=== PATIENT | female | born 1950 | race Caucasian/White ===

== ENCOUNTER 2017-02-17 11:15 | Emergency (ER) | payer MEDICARE, OTHER ==
[~2017-02-17] VITALS: Ht 160 cm; Wt 71.0 kg
[~2017-02-17 11:15] MED LIST: ASPI325T PO; CARV12.52 PO; EFFE150C PO; GABA300C5 PO; LISI40TA PO; LORA1TAB12 PO; PRED20 PO; RISP3TAB2 PO; VENTAER INH
[2017-02-17 11:16] VITALS: BP 113/74; PULSE 71; RESP 18; TEMP 98.7; O2SAT 96
--- NOTE | 2017-02-17 11:40 | PD ---
HPI Chief Complaint: Skin Problem Time Seen by Provider: 11:30 Travel History International Travel<30 days: No Contact w/Intl Traveler<30days: No Traveled to known affect area: No History of Present Illness HPI This is a 66-year-old female who presents for evaluation of a rash. Symptoms started one month ago. The rash is pruritic and involves the extremities and torso. She reports that she was seen by her primary care physician 2 weeks ago and placed on an unknown oral antibiotic as well as mupirocin cream and an antifungal cream. she then went back to her primary care physician yesterday and medications were changed to Bactrim. She reports that she had some lab work which "didn't show anything." She says that the rash is persisted which prompted evaluation today. She reports that she has an appointment with a glassware defect repairer February 23 but she did not want to wait until then. She does note that she currently lives in a homeless coalition and further versus has a similar rash however she is a poor historian. Denies any fevers, chills, upper respiratory symptoms, recent travel, GI symptoms. She has no other complaints at this time. PFSH Past Medical History Hx Anticoagulant Therapy: Yes (ASA) Bipolar Disorder: Yes Anxiety: Yes Depression: Yes Cancer: Yes (Non hodgkin's lymphoma (2004) ) Cardiovascular Problems: Yes (HTN) High Cholesterol: Yes Chemotherapy: Yes (2006) Congestive Heart Failure: Yes COPD: Yes Diminished Hearing: No Gastrointestinal Disorders: Yes (PANCREATITIS) GERD: Yes Headaches: Yes Hepatitis: Yes (C) Hiatal Hernia: Yes Hypertension: Yes Implanted Vascular Access Dvce: Yes (RIGHT CHEST) Musculoskeletal: Yes Neurologic: Yes Psychiatric: Yes Respiratory: Yes (COPD) Pancreatitis: Yes Pneumonia: Yes Seizures: Yes Menopausal: Yes : 3 Para: 1 : 2 Tubal Ligation: Yes Past Surgical History Abdominal Surgery: Yes Appendectomy: Yes Body Medical Devices: CARDIAC STENT X 1 Cardiac Surgery: Yes (cardiac cath) Coronary Stent: Yes (X 1) Oral Surgery: Yes (TEETH PULLED) Other Surgery: Yes (MULTIPLE SKIN GRAFTS SX FROM [facility]) Social History Alcohol Use: No Tobacco Use: No (4-5 CIGS/DAY) Substance Use: No Allergies-Medications (Allergen,Severity, Reaction): Coded Allergies: Penicillin (Verified Allergy, Severe, Swelling, 02/17/17) Per pt. Vancomycin (Verified Allergy, Intermediate, REDNESS,FEVER, 02/17/17) Per pt. Reported Meds & Prescriptions Reported Meds & Active Scripts Active Prednisone 20 Mg Tab 40 Mg PO ONCE 5 Days Ventolin Hfa 18 GM Inh (Albuterol Sulfate) 90 Mcg/Act Aer 2 Puff INH Q4-6H PRN Reported Effexor XR 24 HR (Venlafaxine HCl) 150 Mg Cap 150 Mg PO DAILY Risperidone 3 Mg Tab 3 Mg PO HS Lorazepam 1 Mg Tab 1 Mg PO TID PRN Lisinopril 40 Mg Tab 40 Mg PO DAILY Gabapentin 300 Mg Cap 300 Mg PO TID Carvedilol 12.5 Mg Tab 12.5 Mg PO TID Aspirin 325 Mg Tab 325 Mg PO DAILY Review of Systems Except as stated in HPI: all other systems reviewed are Neg Physical Exam Narrative GENERAL: Well-developed well-nourished female in no acute distress SKIN: Warm and dry. Examination of the skin reveals multiple excoriated plaque lesions on the torso and extremities. There is no purpura, no vesicles, no pustules, no petechiae, no hives, no induration or erythema of the skin. There is some scabbing likely secondary to scratching. HEAD: Atraumatic. Normocephalic. EYES: Pupils equal and round. No scleral icterus. No injection or drainage. ENT: No nasal bleeding or discharge. Mucous membranes pink and moist. NECK: Trachea midline. No JVD. CARDIOVASCULAR: Regular rate and rhythm. No murmur appreciated. RESPIRATORY: No accessory muscle use. Clear to auscultation. Breath sounds equal bilaterally. GASTROINTESTINAL: Abdomen soft, non-tender, nondistended. Hepatic and splenic margins not palpable. MUSCULOSKELETAL: No obvious deformities. No edema. NEUROLOGICAL: Awake and alert. No obvious cranial nerve deficits. Motor grossly within normal limits. Normal speech. PSYCHIATRIC: Appropriate mood and affect; insight and judgment normal. Data Data Last Documented VS Vital Signs Date Time Temp Pulse Resp B/P Pulse Ox O2 Delivery O2 Flow Rate FiO2 02/17/17 11:16 98.7 71 18 113/74 96 Room Air MDM Medical Decision Making Medical Screen Exam Complete: Yes Emergency Medical Condition: Yes Medical Record Reviewed: Yes Differential Diagnosis Psoriasis, contact dermatitis, viral exanthem, scabies, bedbugs, cellulitis, erysipelas, impetigo Narrative Course 66-year-old female who has had a widespread pruritic rash for 1 month. Examination reveals excoriated plaque lesions, no evidence of secondary cellulitic changes. I recommended that the patient discontinue the Bactrim antibiotic and she will be placed on prednisone, Vistaril as well as triamcinolone cream. She has no plan with a glassware defect repairer in one week if she is encouraged to follow-up with. She is stable for discharge. Diagnosis Primary Impression: Pruritic rash Additional Instructions: Quit taking the sulfamethoxazole antibiotic. Take the medications as prescribed. As discussed, scratching a skin contaminant her skin and cause a secondary bacterial infection. Avoid this as best as possible. Follow-up with glassware defect repairer as scheduled. Return for any new or worsening symptoms. Med/Other Pt SpecificInfo: Prescription(s) given Scripts Triamcinolone Topical 0.025 % Oint1 Applic TOPICAL BID 7 Days Ref 0 Prov:Darya Cahvez MD 02/17/17 Hydroxyzine Pamoate (Vistaril)25 Mg Cap25 Mg PO Q6H #20 CAP Ref 0 Prov:Darya Chavez MD 02/17/17 Prednisone 20 Mg Tab20 Mg PO BID 5 Days Ref 0 Prov:Darya Chavez MD 02/17/17 Disposition: 01 DISCHARGE HOME Condition: Stable Chau Guallpa Feb 17, 2017 11:40
[2017-02-17] MEDS ORDERED: PRED20 PO (12:09)
[2017-02-17] MEDS ORDERED: TRIA0.022 TOPICAL (12:09)
[2017-02-17] MEDS ORDERED: VIST25CA PO (12:09)
[2017-02-17] MEDS ORDERED: predniSONE 20 MG TAB PO ONE (12:15)
[2017-02-17] MEDS ORDERED: SULF400T PO (12:42)
== END 2017-02-17 13:00 | disposition home or self-care (01) ==
LOC: NEPA 11:15
DX: L29.9 Pruritus, unspecified (principal); I10 Essential (primary) hypertension; I50.9 Heart failure, unspecified; J44.9 Chronic obstructive pulmonary disease, unspecified; E78.00 Pure hypercholesterolemia, unspecified; F41.9 Anxiety disorder, unspecified; Z85.72 Personal history of non-Hodgkin lymphomas; Z79.82 Long term (current) use of aspirin
CPT/HCPCS: 99282; J7512

== ENCOUNTER 2017-03-08 16:12 | Emergency (ER) | payer MEDICARE, OTHER ==
[~2017-03-08] VITALS: Ht 160 cm; Wt 71.5 kg
[~2017-03-08 16:12] MED LIST changes: -ASPI325T PO; +SULF400T PO; +TRIA0.022 TOPICAL; +VIST25CA PO
--- NOTE | 2017-03-08 18:26 | PD ---
HPI Chief Complaint: Edema Time Seen by Provider: 18:26 Travel History International Travel<30 days: No Contact w/Intl Traveler<30days: No Traveled to known affect area: No History of Present Illness HPI 66-year-old female presents the emergency department with ongoing pruritic rash to the lower extremities, upper extremities, and torso. Patient is been seen for this approximate one month ago, and treated with prednisone and topical hydrocortisone ointment. Patient has been seen by a director of development and marketing and had a punch biopsy done on the left lower extremity. Patient states she's been placed on an ointment she is unaware of the name of without any improvement. She saw the director of development and marketing on February 23. Patient is a chain smoker with chronic shortness of breath and sinusitis symptoms. Patient denies fever, chills, or other symptoms. Patient is allergic to penicillin and vancomycin. PFSH Past Medical History Hx Anticoagulant Therapy: Yes Bipolar Disorder: Yes Anxiety: Yes Depression: Yes Cancer: Yes (Non hodgkin's lymphoma (2004) ) Cardiovascular Problems: Yes (HTN) High Cholesterol: Yes Chemotherapy: Yes (2006) Congestive Heart Failure: Yes COPD: Yes Diminished Hearing: No Gastrointestinal Disorders: Yes (PANCREATITIS) GERD: Yes Headaches: Yes Hepatitis: Yes (C) Hiatal Hernia: Yes Hypertension: Yes Implanted Vascular Access Dvce: Yes (RIGHT CHEST) Musculoskeletal: Yes Neurologic: Yes Psychiatric: Yes Respiratory: Yes (COPD) Pancreatitis: Yes Pneumonia: Yes Seizures: Yes Tetanus Vaccination: Unknown Influenza Vaccination: Yes Menopausal: Yes : 3 Para: 1 : 2 Tubal Ligation: Yes Past Surgical History Abdominal Surgery: Yes Appendectomy: Yes Body Medical Devices: CARDIAC STENT X 1 Cardiac Surgery: Yes (cardiac cath) Coronary Stent: Yes (X 1) Oral Surgery: Yes (TEETH PULLED) Other Surgery: Yes (MULTIPLE SKIN GRAFTS SX FROM [facility]) Social History Alcohol Use: Yes Tobacco Use: Yes Substance Use: No Allergies-Medications (Allergen,Severity, Reaction): Coded Allergies: Penicillin (Verified Allergy, Severe, Swelling, 03/08/17) Per pt. Vancomycin (Verified Allergy, Intermediate, REDNESS,FEVER, 03/08/17) Per pt. Reported Meds & Prescriptions Reported Meds & Active Scripts Active Diflucan (Fluconazole) 150 Mg Tab 150 Mg PO WEEKLY PRN Prednisone 20 Mg Tab 20 Mg PO BID Keflex (Cephalexin) 500 Mg Cap 500 Mg PO Q8H Triamcinolone Topical 0.025 % Oint 1 Applic TOPICAL BID 7 Days Vistaril (Hydroxyzine Pamoate) 25 Mg Cap 25 Mg PO Q6H Prednisone 20 Mg Tab 20 Mg PO BID 5 Days Ventolin Hfa 18 GM Inh (Albuterol Sulfate) 90 Mcg/Act Aer 2 Puff INH Q4-6H PRN Reported Sulfamethoxazole-Trimethoprim 400-80 Mg Tab 1 Tab PO BID Effexor XR 24 HR (Venlafaxine HCl) 150 Mg Cap 150 Mg PO DAILY Risperidone 3 Mg Tab 3 Mg PO HS Lorazepam 1 Mg Tab 1 Mg PO TID PRN Lisinopril 40 Mg Tab 40 Mg PO DAILY Gabapentin 300 Mg Cap 300 Mg PO TID Carvedilol 12.5 Mg Tab 12.5 Mg PO TID Review of Systems Except as stated in HPI: all other systems reviewed are Neg General / Constitutional: No: Fever Eyes: No: Visual changes HENT: No: Headaches Cardiovascular: No: Chest Pain or Discomfort Respiratory: No: Shortness of Breath Gastrointestinal: No: Abdominal Pain Genitourinary: No: Dysuria Musculoskeletal: No: Pain Skin: Positive Rash, Positive Itching, Positive Dryness Neurologic: No: Weakness Psychiatric: No: Depression Endocrine: No: Polydipsia Hematologic/Lymphatic: No: Easy Bruising Physical Exam Narrative GENERAL: Patient is ambulatory to the room without difficulty. She has SKIN: Warm and dry. HEAD: Atraumatic. Normocephalic. EYES: Pupils equal and round. No scleral icterus. No injection or drainage. ENT: No nasal bleeding or discharge. Mucous membranes pink and moist. NECK: Trachea midline. No JVD. CARDIOVASCULAR: Regular rate and rhythm. RESPIRATORY: No accessory muscle use. Clear to auscultation. Breath sounds equal bilaterally. GASTROINTESTINAL: Abdomen soft, non-tender, nondistended. Hepatic and splenic margins not palpable. MUSCULOSKELETAL: Extremities without clubbing, cyanosis, or edema. No obvious deformities. NEUROLOGICAL: Awake and alert. No obvious cranial nerve deficits. Motor grossly within normal limits. Five out of 5 muscle strength in the arms and legs. Normal speech. PSYCHIATRIC: Appropriate mood and affect; insight and judgment normal. Data Data Last Documented VS Vital Signs Date Time Temp Pulse Resp B/P Pulse Ox O2 Delivery O2 Flow Rate FiO2 03/08/17 19:57 95 Nasal Cannula 2 03/08/17 19:10 102.1 Orders Complete Blood Count With Diff (03/08/17 19:11) Comprehensive Metabolic Panel (03/08/17 19:11) Prothrombin Time / Inr (Pt) (03/08/17 19:11) Act Partial Throm Time (Ptt) (03/08/17 19:11) Lactic Acid Sepsis Protocol (03/08/17 19:11) Magnesium (Mg) (03/08/17 19:11) Lipase (03/08/17 19:11) Urinalysis - C+S If Indicated (03/08/17 19:11) Influenzae A/B Antigen (03/08/17 19:11) Blood Culture (03/08/17 19:11) Chest, Single Ap (03/08/17 19:11) Ecg Monitoring (03/08/17 19:11) Iv Access Insert/Monitor (03/08/17 19:11) Cath For Specimen (03/08/17 19:11) Oximetry (03/08/17 19:11) Oxygen Administration (03/08/17 19:11) Acetaminophen (Tylenol) (03/08/17 19:15) Sodium Chlor 0.9% 1000 Ml Inj (Ns 1000 M (03/08/17 19:11) Sodium Chlor 0.9% 1000 Ml Inj (Ns 1000 M (03/08/17 19:11) Sodium Chlor 0.9% 1000 Ml Inj (Ns 1000 M (03/08/17 19:11) Urinary Catheter Insert/Apply (03/08/17 20:09) Urine Culture (03/08/17 20:20) Ceftriaxone Inj (Rocephin Inj) (03/08/17 20:45) Methylprednisolone So Succ Inj (Solumedr (03/08/17 20:45) Nicotine 21 Mg Patch.24 Hr (Habitrol 21 (03/08/17 20:45) Labs Laboratory Tests Test 03/08/17 03/08/17 19:40 20:20 White Blood Count 10.3 TH/MM3 Red Blood Count 5.05 MIL/MM3 Hemoglobin 13.4 GM/DL Hematocrit 40.5 % Mean Corpuscular Volume 80.1 FL Mean Corpuscular Hemoglobin 26.5 PG Mean Corpuscular Hemoglobin 33.0 % Concent Red Cell Distribution Width 15.9 % Platelet Count 209 TH/MM3 Mean Platelet Volume 8.3 FL Neutrophils (%) (Auto) 72.0 % Lymphocytes (%) (Auto) 18.8 % Monocytes (%) (Auto) 8.8 % Eosinophils (%) (Auto) 0.2 % Basophils (%) (Auto) 0.2 % Neutrophils # (Auto) 7.4 TH/MM3 Lymphocytes # (Auto) 1.9 TH/MM3 Monocytes # (Auto) 0.9 TH/MM3 Eosinophils # (Auto) 0.0 TH/MM3 Basophils # (Auto) 0.0 TH/MM3 CBC Comment DIFF FINAL Differential Comment Prothrombin Time 11.9 SEC Prothromb Time International 1.1 RATIO Ratio Activated Partial 33.6 SEC Thromboplast Time Sodium Level 131 MEQ/L Potassium Level 3.6 MEQ/L Chloride Level 91 MEQ/L Carbon Dioxide Level 32.8 MEQ/L Anion Gap 7 MEQ/L Blood Urea Nitrogen 9 MG/DL Creatinine 0.91 MG/DL Estimat Glomerular Filtration 62 ML/MIN Rate Random Glucose 129 MG/DL Lactic Acid Level 1.1 mmol/L Calcium Level 9.5 MG/DL Magnesium Level 2.1 MG/DL Total Bilirubin 0.6 MG/DL Aspartate Amino Transf 14 U/L (AST/SGOT) Alanine Aminotransferase 19 U/L (ALT/SGPT) Alkaline Phosphatase 85 U/L Total Protein 9.1 GM/DL Albumin 3.7 GM/DL Lipase 261 U/L Urine Color LIGHT-YELLOW Urine Turbidity CLEAR Urine pH 7.5 Urine Specific [place] 1.007 Urine Protein 30 mg/dL Urine Glucose (UA) NEG mg/dL Urine Ketones NEG mg/dL Urine Occult Blood SMALL Urine Nitrite NEG Urine Bilirubin NEG Urine Urobilinogen LESS THAN 2.0 MG/DL Urine Leukocyte Esterase SMALL Urine RBC 4 /hpf Urine WBC 3 /hpf Urine Bacteria OCC /hpf Microscopic Urinalysis Comment CATH-CULTURE IND MDM Medical Decision Making Medical Screen Exam Complete: Yes Emergency Medical Condition: Yes Medical Record Reviewed: Yes Differential Diagnosis Fever. Chronic rash. Urosepsis. Urinary tract infection. COPD with exacerbation. Ammonia. Narrative Course Patient is medically stable at time of exam. Labs ordered including CBC, CMP, lactic acid, blood cultures 2, urinalysis, coagulation studies. Chest x-ray is ordered as well as EKG. EKG shows no significant acute findings. Chest x-ray shows no acute findings per radiologist. Cárdenas catheter is placed as the patient is up to go to the bathroom every 5 minutes while here. Patient is given acetaminophen 650 mg by mouth. Patient is given thousand milligrams saline bolus 1. CBC shows no significant leukocytosis. CMP shows sodium 131, potassium 3.6. Chloride of 91. Carbon dioxide 32.8. BUN /creatinine are normal. Lactic acid is 1.1. Coagulation studies are unremarkable. Urinalysis shows small leukocyte esterase, occasional bacteria on a catheter sample which was cultured. Patient is given thousand milligrams Rocephin IV, as well as 125 mg Solu-Medrol IV. Patient is given a 21 g nicotine patch topically. Patient is discussed with Dr. Ospina who does not feel the patient warrants hospitalization at this time. Patient will be given Keflex 500 mg 3 times a day 7 days. Patient also given prednisone 20 mg twice a day 5 days. Patient is given Diflucan 1 tablet weekly 4 weeks for what I feel is a chronic dermatophytosis causing her rash. Patient is to follow-up with her primary care physician and/or director of development and marketing as previously planned. Patient can return to emergency Department with worsening symptoms as needed. Diagnosis Primary Impression: Pruritic rash Additional Impressions: UTI (urinary tract infection) Qualified Code: N30.00 - Acute cystitis without hematuria Dermatophytosis Referrals: Primary Care Physician Patient Instructions: Dermatitis (ED), Dysuria (ED), General Instructions Additional Instructions: Patient will be given Keflex 500 mg 3 times a day 7 days. Patient also given prednisone 20 mg twice a day 5 days. Patient is given Diflucan 1 tablet weekly 4 weeks for what I feel is a chronic dermatophytosis causing her rash. Patient is to follow-up with her primary care physician and/or director of development and marketing as previously planned. Patient can return to emergency Department with worsening symptoms as needed. Med/Other Pt SpecificInfo: Prescription(s) given Scripts Fluconazole (Diflucan)150 Mg [id number] Mg PO WEEKLY PRN (RASH) #4 TAB Ref 0 Prov:Aamir Barboza MD 03/08/17 Prednisone 20 Mg Tab20 Mg PO BID #10 TAB Prov:Aamir Barboza MD 03/08/17 Cephalexin (Keflex)500 Mg [id number] Mg PO Q8H #21 CAP Prov:Aamir Barboza MD 4/17/17 Disposition: 01 DISCHARGE HOME Condition: Stable Joseph Cleary Mar 08, 2017 18:26
[2017-03-08 19:10] VITALS: TEMP 102.1
[2017-03-08] MEDS ORDERED: SODIUM CHLOR 0.9% 1000 ML INJ 1,000 ML IV ONE ×2 (19:11)
[2017-03-08] MEDS ORDERED: SODIUM CHLOR 0.9% 1000 ML INJ 400 ML IV ONE (19:11)
[2017-03-08] MEDS ORDERED: ACETAMINOPHEN 325 MG TAB PO ONE (19:15)
--- NOTE | 2017-03-08 19:32 | RADRPT ---
EXAM DATE/TIME: 03/08/2017 19:25 [facility] COMPARISON: CHEST SINGLE AP, October 10, 2016, 10:57. INDICATIONS : Fever MEDICAL HISTORY : Hypertension. Lymphoma. SURGICAL HISTORY : Coronary artery stent. ENCOUNTER: Initial ACUITY: 1 day PAIN SCORE: 0/10 LOCATION: Bilateral chest FINDINGS: No infiltrate seen. No pleural effusion or pneumothorax. Heart size stable, within normal limits. Thoracic aorta is mildly tortuous. Right subclavian [id number] catheter with tip in the superior vena cava again noted. CONCLUSION: No acute cardiopulmonary disease demonstrated. Richard Azar MD on March 08, 2017 at 19:30 Board Certified Radiologist. This report was verified electronically.
[2017-03-08 20:17] LABS: AUTOMATED NEUTROPHIL # 7.4 TH/MM3 (1.8-7.7); BASOPHIL % 0.2 % (0.0-2.0); EOSINOPHIL % 0.2 % (0.0-4.0); HEMATOCRIT 40.5 % (35.0-46.0); HEMO FLAGS DIFF FINAL; LYMPH % 18.8 % (9.0-44.0); LYMPHOCYTE # 1.9 TH/MM3 (1.0-4.8); MEAN CELL VOLUME 80.1 FL (80.0-100.0); MEAN CORPUSCULAR HEMOGLOBIN 26.5 PG (27.0-34.0); MONO % 8.8 % (0.0-8.0); PLATELET COUNT 209 TH/MM3 (150-450); RED BLOOD COUNT 5.05 MIL/MM3 (4.00-5.30); RED CELL DISTRIBUTION WIDTH 15.9 % (11.6-17.2); WHITE BLOOD COUNT 10.3 TH/MM3 (4.0-11.0)
[2017-03-08 20:23] LABS: APTT (PATIENT) 33.6 SEC (24.3-30.1); INTERNATIONAL NORMALIZED RATIO 1.1 RATIO; PROTHROMBIN TIME - PATIENT 11.9 SEC (9.8-11.6)
[2017-03-08 20:31] LABS: ANION GAP 7 MEQ/L (5-15); AST (GOT) 14 U/L (15-37); BICARBONATE 32.8 MEQ/L (21.0-32.0); BLOOD UREA NITROGEN 9 MG/DL (7-18); CHLORIDE 91 MEQ/L (98-107); GLOMERULAR FILTRATION RATE 62 ML/MIN (>89); MAGNESIUM 2.1 MG/DL (1.5-2.5); POTASSIUM 3.6 MEQ/L (3.5-5.1); SODIUM (NA) 131 MEQ/L (136-145)
[2017-03-08 20:34] LABS: BACTERIA, URINE OCC /hpf; BLOOD, URINE SMALL (NEG); GLUCOSE,URINE NEG (NEG); KETONE, URINE NEG (NEG); NITRITE,URINE NEG (NEG); PH, URINE 7.5 (5.0-8.5); URINE COLOR LIGHT-YELLOW (YELLW/STRAW)
[2017-03-08 20:34] LABS: ALKALINE PHOSPHATASE 85 U/L (45-117); ALT (GPT) 19 U/L (10-53); TOTAL BILIRUBIN ADULT 0.6 MG/DL (0.2-1.0)
[2017-03-08 20:35] LABS: COMMENT (UR) CATH-CULTURE IND; CULTURE IF INDICATED CATH CULTURE IND
[2017-03-08] MEDS ORDERED: NICOTINE 21 MG/24 HR PATCH T-DERMAL ONE (20:45)
[2017-03-08] MEDS ORDERED: cefTRIAXone INJ 1,000 MG in SODIUM CHLORIDE 0.9% INJ 100 ML IV ONE (20:45)
[2017-03-08] MEDS ORDERED: methylPREDNISolone SOD SUCC 125 MG/2 ML VIAL IVP ONE (20:45)
[2017-03-08] MEDS ORDERED: PRED20 PO (20:53)
[2017-03-08] MEDS ORDERED: CEPH-460 PO (20:53)
[2017-03-08] MEDS ORDERED: DIFL150T PO (20:53)
== END 2017-03-08 23:41 | disposition home or self-care (01) ==
LOC: NEPC 16:12
DX: R21 Rash and other nonspecific skin eruption (principal); N39.0 Urinary tract infection, site not specified; B35.9 Dermatophytosis, unspecified; I10 Essential (primary) hypertension; B96.20 Unspecified Escherichia coli [E. coli] as the cause of diseases classified elsewhere; Z79.01 Long term (current) use of anticoagulants; Z72.0 Tobacco use; Z79.899 Other long term (current) drug therapy
CPT/HCPCS: 51702; 71010; 80053; 81001; 83605; 83690; 83735; 85025; 85610; 85730; 87040; 87077; 87086; 87186; 87205; 87804; 96374; 99283; J0696; J2930; J7030

== ENCOUNTER 2017-08-08 11:32 | Observation (INO) | payer MEDICARE, OTHER ==
[2017-08-08] VITALS (8 sets, daily range): BP systolic 105–143; BP diastolic 57–79; PULSE 49–118; RESP 16–20; TEMP 97.9–98.7; O2SAT 96–98
[~2017-08-08] VITALS: Ht 160 cm; Wt 65.0 kg
[~2017-08-08 11:32] MED LIST changes: +CEPH-460 PO; +DIFL150T PO
[2017-08-08] MEDS ORDERED: SODIUM CHLORID 0.9% 500 ML INJ 500 ML IV ONE (12:15)
[2017-08-08] MEDS ORDERED: SODIUM CHLORIDE 0.9% FLUSH 10 ML FLUSH IVF PRN (12:15)
[2017-08-08] MEDS ORDERED: ACETAMINOPHEN 325 MG TAB PO ONE (12:15)
[2017-08-08] MEDS: SODIUM CHLOR 0.9% 1000 ML INJ 1,000 ML IV SCH ×2 (12:28→22:15)
[2017-08-08 12:42] LABS: AUTOMATED NEUTROPHIL # 3.8 TH/MM3 (1.8-7.7); BASOPHIL % 0.4 % (0.0-2.0); EOSINOPHIL # 0.2 TH/MM3 (0-0.4); EOSINOPHIL % 2.4 % (0.0-4.0); HEMATOCRIT 40.2 % (35.0-46.0); HEMO FLAGS DIFF FINAL; LYMPH % 38.3 % (9.0-44.0); LYMPHOCYTE # 2.8 TH/MM3 (1.0-4.8); MEAN CELL VOLUME 85.3 FL (80.0-100.0); MEAN CORPUSCULAR HEMOGLOBIN 28.4 PG (27.0-34.0); MEAN CORPUSCULAR HGB CONC 33.3 % (32.0-36.0); MONO % 6.7 % (0.0-8.0); NEUT % 52.2 % (16.0-70.0); PLATELET COUNT 249 TH/MM3 (150-450); RED BLOOD COUNT 4.71 MIL/MM3 (4.00-5.30); RED CELL DISTRIBUTION WIDTH 15.3 % (11.6-17.2); WHITE BLOOD COUNT 7.3 TH/MM3 (4.0-11.0)
--- NOTE | 2017-08-08 12:44 | PD ---
HPI Chief Complaint: Respiratory Symptoms Time Seen by Provider: 11:51 Travel History International Travel<30 days: No Contact w/Intl Traveler<30days: No Traveled to known affect area: No History of Present Illness HPI This is a 66 year old female history of COPD, hypertension, who presents today with complaints of chest pain. Patient states that she has substernal chest pain. Is no radiation. She reports it as a 4 out of 5 on the pain scale. Patient also reports headache. Patient states that she has not been drinking enough fluid over last several days. She denies any photophobia. She denies any stiff neck. She denies any extremity weakness or paresthesias. There are no other complaints time my examination. PFSH Past Medical History Hx Anticoagulant Therapy: Yes Bipolar Disorder: Yes Anxiety: Yes Depression: Yes Cancer: Yes (Non hodgkin's lymphoma (2004) ) Cardiovascular Problems: Yes (HTN) High Cholesterol: Yes Chemotherapy: Yes (2006) Congestive Heart Failure: Yes COPD: Yes Diminished Hearing: No Gastrointestinal Disorders: Yes (PANCREATITIS) GERD: Yes Headaches: Yes Hepatitis: Yes (C) Hiatal Hernia: Yes Hypertension: Yes Implanted Vascular Access Dvce: Yes (RIGHT CHEST) Musculoskeletal: Yes Neurologic: Yes Psychiatric: Yes Respiratory: Yes (COPD) Pancreatitis: Yes Pneumonia: Yes Seizures: Yes Tetanus Vaccination: > 5 Years Influenza Vaccination: Yes ?: Not Menopausal: Yes : 3 Para: 1 Miscarriage: 0 : 2 Tubal Ligation: Yes Past Surgical History Abdominal Surgery: Yes Appendectomy: Yes Body Medical Devices: CARDIAC STENT X 1 Cardiac Surgery: Yes (cardiac cath) Coronary Stent: Yes (X 1) Oral Surgery: Yes (TEETH PULLED) Other Surgery: Yes (MULTIPLE SKIN GRAFTS SX FROM [facility]) Social History Alcohol Use: Yes Tobacco Use: Yes (11/25 ppd) Substance Use: No Allergies-Medications (Allergen,Severity, Reaction): Coded Allergies: penicillin G (Unverified Allergy, Severe, Swelling, 08/08/17) Per pt. vancomycin (Unverified Allergy, Intermediate, REDNESS,FEVER, 08/08/17) Per pt. Reported Meds & Prescriptions Reported Meds & Active Scripts Active Reported Effexor XR 24 HR (Venlafaxine HCl) 150 Mg Cap 150 Mg PO DAILY Lisinopril 40 Mg Tab 40 Mg PO DAILY Gabapentin 300 Mg Cap 300 Mg PO TID Carvedilol 12.5 Mg Tab 12.5 Mg PO TID Review of Systems Except as stated in HPI: all other systems reviewed are Neg General / Constitutional: No: Fever, Chills Eyes: No: Blurred Vision, Photophobia HENT: Positive: Headaches, No: Lightheadedness, Neck Stiffness, Neck Pain Cardiovascular: Positive: Chest Pain or Discomfort (substernal), No: Palpitations, Irregular Rhythm Respiratory: No: Cough, Shortness of Breath Gastrointestinal: No: Nausea, Vomiting Genitourinary: No: Urgency, Frequency, Dysuria Musculoskeletal: No: Weakness, Pain Neurologic: Positive: Headache, No: Weakness, Dizziness, Sensory Disturbance Physical Exam Narrative GENERAL: Well-developed well-nourished female in no acute rest her distress. SKIN: Focused skin assessment warm/dry. HEAD: Atraumatic. Normocephalic. EYES: Extraocular muscles were intact.. No scleral icterus. No injection or drainage. ENT: No nasal bleeding or discharge. Mucous membranes pink and moist. NECK: Trachea midline. Supple. CARDIOVASCULAR: Regular rate and rhythm. No murmur appreciated. RESPIRATORY: No accessory muscle use. Clear to auscultation. Breath sounds equal bilaterally. GASTROINTESTINAL: Abdomen soft, non-tender, nondistended. MUSCULOSKELETAL: No obvious deformities. No clubbing. No cyanosis. No edema. NEUROLOGICAL: Awake and alert. No obvious cranial nerve deficits. Motor grossly within normal limits. Normal speech. Normal finger to nose. Extraocular muscles were intact. PSYCHIATRIC: Appropriate mood and affect; insight and judgment normal. Data Data Last Documented VS Vital Signs Date Time Temp Pulse Resp B/P (MAP) Pulse Ox O2 Delivery O2 Flow Rate FiO2 08/08/17 13:30 20 08/08/17 12:11 96 Room Air 08/08/17 11:35 97.9 63 Orders Orders Electrocardiogram (08/08/17 ) Basic Metabolic Panel (Bmp) (08/08/17 12:05) Ckmb (Isoenzyme) Profile (08/08/17 12:05) Complete Blood Count With Diff (08/08/17 12:05) Magnesium (Mg) (08/08/17 12:05) Prothrombin Time / Inr (Pt) (08/08/17 12:05) Act Partial Throm Time (Ptt) (08/08/17 12:05) Troponin I (08/08/17 12:05) Chest, Single Ap (08/08/17 12:05) Ecg Monitoring (08/08/17 12:05) Bilateral Bp Monitoring (08/08/17 12:05) Iv Access Insert/Monitor (08/08/17 12:05) Oximetry (08/08/17 12:05) Oxygen Administration (08/08/17 12:05) Sodium Chloride 0.9% Flush (Ns Flush) (08/08/17 12:15) Ct Brain W/O Iv Contrast(Rout) (08/08/17 12:05) Sodium Chlorid 0.9% 500 Ml Inj (Ns 500 M (08/08/17 12:15) Sodium Chlor 0.9% 1000 Ml Inj (Ns 1000 M (08/08/17 12:15) Acetaminophen (Tylenol) (08/08/17 12:15) Prochlorperazine Inj (Compazine Inj) (08/08/17 14:45) Diphenhydramine Inj (Benadryl Inj) (08/08/17 14:45) Electrocardiogram (08/08/17 15:01) Ckmb (Isoenzyme) Profile (08/08/17 15:01) Troponin I (08/08/17 15:01) Admit Order (Ed Use Only) (08/08/17 15:02) Labs Laboratory Tests Test 08/08/17 12:20 White Blood Count 7.3 TH/MM3 Red Blood Count 4.71 MIL/MM3 Hemoglobin 13.4 GM/DL Hematocrit 40.2 % Mean Corpuscular Volume 85.3 FL Mean Corpuscular Hemoglobin 28.4 PG Mean Corpuscular Hemoglobin Concent 33.3 % Red Cell Distribution Width 15.3 % Platelet Count 249 TH/MM3 Mean Platelet Volume 8.4 FL Neutrophils (%) (Auto) 52.2 % Lymphocytes (%) (Auto) 38.3 % Monocytes (%) (Auto) 6.7 % Eosinophils (%) (Auto) 2.4 % Basophils (%) (Auto) 0.4 % Neutrophils # (Auto) 3.8 TH/MM3 Lymphocytes # (Auto) 2.8 TH/MM3 Monocytes # (Auto) 0.5 TH/MM3 Eosinophils # (Auto) 0.2 TH/MM3 Basophils # (Auto) 0.0 TH/MM3 CBC Comment DIFF FINAL Differential Comment Prothrombin Time 11.1 SEC Prothromb Time International Ratio 1.0 RATIO Activated Partial Thromboplast Time 27.4 SEC Blood Urea Nitrogen 15 MG/DL Creatinine 0.67 MG/DL Random Glucose 89 MG/DL Calcium Level 8.8 MG/DL Magnesium Level 2.2 MG/DL Sodium Level 141 MEQ/L Potassium Level 4.1 MEQ/L Chloride Level 108 MEQ/L Carbon Dioxide Level 27.2 MEQ/L Anion Gap 6 MEQ/L Estimat Glomerular Filtration Rate 88 ML/MIN Total Creatine Kinase 44 U/L Troponin I LESS THAN 0.02 NG/ML MDM Medical Decision Making Medical Screen Exam Complete: Yes Emergency Medical Condition: Yes Interpretation(s) Last [address] 08/08/17 1205 Signed Impressions: Service Date/Time: Tuesday, August 08, 2017 12:40 - CONCLUSION: No acute disease. Richard Le MD Chest X-Ray 08/08/17 1205 Signed Impressions: Service Date/Time: Tuesday, August 08, 2017 12:29 - CONCLUSION: No acute disease. Richard Le MD Differential Diagnosis ACS versus dehydration versus metabolic arrangement versus intracranial bleed versus noncardiac chest pain. Narrative Course 66 year old female history of COPD, hypertension, presents today with complaints of chest pain and head pain. The patient's been in a house without heat for several days. She has not been drinking enough fluid. The patient does appear to be dehydrated on exam. Patient reports chest pain as substernal. She reports no diaphoresis or nausea. EKG shows no evidence of acute cardiac findings. Cardiac enzymes are within normal limits. CT scan of brain shows no evidence of acute intercranial abnormalities. She's been given 1 L of IVD fluid. She still states that she has a mild headache. She's been given Compazine 10 mg and Benadryl 25 mg I V times one dose. She'll be admitted to the chest pain center for rule out protocol. She is amenable to this. Diagnosis Primary Impression: Chest pain Additional Impressions: Cephalgia Hypertension COPD (chronic obstructive pulmonary disease) Admitting Information Admitting Physician Requests: Observation Michael Hall MD Aug 08, 2017 12:44
[2017-08-08 12:49] LABS: APTT (PATIENT) 27.4 SEC (24.3-30.1); PROTHROMBIN TIME - PATIENT 11.1 SEC (9.8-11.6)
[2017-08-08 13:06] LABS: ANION GAP 6 MEQ/L (5-15); BICARBONATE 27.2 MEQ/L (21.0-32.0); BLOOD UREA NITROGEN 15 MG/DL (7-18); CHLORIDE 108 MEQ/L (98-107); GLOMERULAR FILTRATION RATE 88 ML/MIN (>89); MAGNESIUM 2.2 MG/DL (1.5-2.5); POTASSIUM 4.1 MEQ/L (3.5-5.1); SODIUM (NA) 141 MEQ/L (136-145)
--- NOTE | 2017-08-08 13:08 | RADRPT ---
EXAM DATE/TIME: 08/08/2017 12:29 [facility] COMPARISON: CHEST SINGLE AP, March 08, 2017, 19:25. INDICATIONS : Chest pain. MEDICAL HISTORY : None. SURGICAL HISTORY : None. ENCOUNTER: Initial ACUITY: 1 day PAIN SCORE: 7/10 LOCATION: Bilateral chest FINDINGS: There is a right subclavian central line place with the tip overlying the SVC. The heart size is norm al. The lungs are clear. CONCLUSION: No acute disease. Richard Le MD on August 08, 2017 at 13:06 Board Certified Radiologist. This report was verified electronically.
[2017-08-08 13:11] LABS: CREATINE KINASE 44 U/L (26-192)
--- NOTE | 2017-08-08 13:12 | RADRPT ---
EXAM DATE/TIME: 08/08/2017 12:40 [facility] COMPARISON: CT BRAIN W/O CONTRAST, March 26, 2016, 8:54. INDICATIONS : Low blood pressure, shortness of breath, headache. RADIATION DOSE: 31.71 CTDIvol (mGy) MEDICAL HISTORY : Cardiovascular disease. Seizures. Hypertension.Pancreatitis, liver disease, non hodgkins lymphoma SURGICAL HISTORY : Appendectomy. Chemo ENCOUNTER: Initial ACUITY: 1 day PAIN SCALE: 8/10 LOCATION: Bilateral cranial TECHNIQUE: Multiple contiguous axial images were obtained of the head. Using automated exposure control and adj ustment of the mA and/or kV according to patient size, radiation dose was kept as low as reasonably a chievable to obtain optimal diagnostic quality images. DICOM format image data is available electro nically for review and comparison. FINDINGS: CEREBRUM: The ventricles are normal for age. No evidence of midline shift, mass lesion, hemorrhage or acute in farction. No extra-axial fluid collections are seen. POSTERIOR FOSSA: The cerebellum and brainstem are intact. The 4th ventricle is midline. The cerebellopontine angle i s unremarkable. EXTRACRANIAL: The visualized portion of the orbits is intact. SKULL: The calvaria is intact. No evidence of skull fracture. CONCLUSION: No acute disease. Richard Le MD on August 08, 2017 at 13:10 Board Certified Radiologist. This report was verified electronically.
[2017-08-08] MEDS ORDERED: PROCHLORPERAZINE INJ 10 MG/2 ML VIAL IV PUSH ONE (14:45)
[2017-08-08] MEDS ORDERED: diphenhydrAMINE HCL 50 MG/ML VIAL IM ONE (14:45)
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
[2017-08-08] MEDS ORDERED: SODIUM CHLORIDE 0.9% FLUSH 5 ML FLUSH IVF PRN (15:45)
[2017-08-08] MEDS ORDERED: cloNIDine HCL 0.1 MG TAB PO PRN (15:45)
[2017-08-08] MEDS ORDERED: ONDANSETRON HCL 4 MG/2 ML VIAL IV PRN (15:45)
[2017-08-08] MEDS ORDERED: ACETAMINOPHEN 500 MG CPLT PO PRN (15:45)
[2017-08-08] MEDS ORDERED: ALPRAZolam 0.25 MG TAB PO PRN (15:45)
[2017-08-08] MEDS ORDERED: RESP: ALBUTEROL 2.5 MG/IPRATROPIUM 0.5 MG NEB (PRN) INH (15:45)
[2017-08-08] MEDS: PANTOPRAZOLE SOD 40 MG DELAYED RELEASE TAB PO SCH (16:35)
[2017-08-08 16:53] LABS: CREATINE KINASE 38 U/L (26-192)
[2017-08-08] MEDS: CARVEDILOL 12.5 MG TAB PO SCH (17:51)
[2017-08-08 19:03] LABS: CREATINE KINASE 41 U/L (26-192)
--- NOTE | 2017-08-08 19:18 | EKG ---
Date Performed: 08/08/2017 Time Performed: 12:03:05 PTAGE: 66 years EKG: SINUS BRADYCARDIA POSSIBLE LEFT ATRIAL ENLARGEMENT POSSIBLE RIGHT VENTRICULAR CONDUCTION DE LAY LEFT ANTERIOR FASCICULAR BLOCK ABNORMAL ECG PREVIOUS TRACING : 10/10/2016 10.53 No significant change from previous tracing noted. DOCTOR: Sheldon Francois Interpretating Date/Time 08/08/2017 19:17:02
[2017-08-08] MEDS: ACETAMINOPHEN/HYDROcodone 325 MG/7.5 MG TAB PO PRN (19:19)
[2017-08-08] MEDS: SODIUM CHLORIDE 0.9% FLUSH 5 ML FLUSH IVF SCH (21:00)
--- NOTE | 2017-08-08 21:42 | EKG ---
Date Performed: 08/08/2017 Time Performed: 18:58:07 PTAGE: 66 years EKG: SINUS BRADYCARDIA POSSIBLE LEFT ATRIAL ENLARGEMENT LEFT ANTERIOR FASCICULAR BLOCK ABNORMAL ECG PREVIOUS TRACING : 08/08/2017 15.54 No significant change from previous tracing noted. DOCTOR: Sheldon Francois Interpretating Date/Time 08/08/2017 21:41:30
[2017-08-09] VITALS (7 sets, daily range): BP systolic 137–145; BP diastolic 76–81; PULSE 50–61; RESP 18–20; TEMP 98.1–98.5; O2SAT 97–99
[2017-08-09] MEDS: ACETAMINOPHEN/HYDROcodone 325 MG/7.5 MG TAB PO PRN ×3 (01:35→13:47)
[2017-08-09] MEDS: SODIUM CHLOR 0.9% 1000 ML INJ 1,000 ML IV SCH (08:20)
[2017-08-09] MEDS: SODIUM CHLORIDE 0.9% FLUSH 5 ML FLUSH IVF SCH (08:20)
[2017-08-09] MEDS: PANTOPRAZOLE SOD 40 MG DELAYED RELEASE TAB PO SCH (08:22)
[2017-08-09] MEDS: CARVEDILOL 12.5 MG TAB PO SCH ×2 (08:23→13:00)
[2017-08-09] MEDS ORDERED: ASPIRIN 325 MG TAB PO SCH (09:00)
[2017-08-09] MEDS ORDERED: LISINOPRIL 20 MG TAB PO SCH (09:00)
[2017-08-09] MEDS ORDERED: VENLAFAXINE HCL XR 75 MG CAP PO SCH (09:00)
[2017-08-09] MEDS ORDERED: REGADENOSON INJ 0.4 MG/5 ML SYR ONE (12:42)
--- NOTE | 2017-08-09 14:05 | EKG ---
Date Performed: 08/08/2017 Time Performed: 15:54:15 PTAGE: 66 years EKG: SINUS BRADYCARDIA LEFT ANTERIOR FASCICULAR BLOCK ABNORMAL ECG PREVIOUS TRACING : 08/08/2017 15.49 Since previous tracing, no significant change noted DOCTOR: J Luis Quispe Interpretating Date/Time 08/09/2017 14:04:35
--- NOTE | 2017-08-09 14:10 | TR ---
Date Performed: 08/09/2017 Time Performed: 12:49:25 DOCTOR: J Luis Quispe DRUG LIST: CLINICAL HISTORY: CAD REASON FOR TEST: CAD REASON FOR ENDING: OBSERVATION: CONCLUSION: Lexiscan stress test was performed under standard four minute protocol. Radionuclid e was injected one minute prior to ending the test. No electrocardiographic abormalities were present to suggest ischemia. Nuclear imaging and interpretation are pending. COMMENTS:
--- NOTE | 2017-08-09 14:13 | EKG ---
Date Performed: 08/09/2017 Time Performed: 10:31:27 PTAGE: 66 years EKG: SINUS BRADYCARDIA POSSIBLE RIGHT VENTRICULAR CONDUCTION DELAY LEFT ANTERIOR FASCICULAR BLOC K ABNORMAL ECG PREVIOUS TRACING : 08/08/2017 18.58 No significant change from previous tracing noted. DOCTOR: Sheldon Francois Interpretating Date/Time 08/09/2017 14:11:31
--- NOTE | 2017-08-09 14:21 | RADRPT ---
EXAM DATE/TIME: 08/09/2017 12:05 [facility] COMPARISON: No previous studies available for comparison. INDICATIONS : Chest pain for 1 day. Angina. Coronary artery disease. DOSE: 26.3 mCi Tc99m Myoview at stress. 8.1 mCi Tc99m Myoview at rest. 0.4 mg Lexiscan STRESS SYMPTOMS: Flush, short of breath and nausea. EJECTION FRACTION: 54% MEDICAL HISTORY : Chronic obstructive pulmonary disease. Hepatitis C. SURGICAL HISTORY : Coronary artery stent. Pacemaker. Tubal ligation. ENCOUNTER: Initial ACUITY: 1 day PAIN SCALE: 3/10 LOCATION: Bilateral chest TECHNIQUE: The patient underwent pharmacologic stress with infusion of prescribed dose. Continuous ECG tracing was monitored during stress. Gated SPECT imaging was performed after stress and conventional SPECT i maging was performed at rest. The examination was performed on a SPECT/CT scanner, both attenuation and non-corrected datasets were reviewed. FINDINGS: DISTRIBUTION: The maximum perfused segment at stress is in the anterolateral wall. PERFUSION STUDY: The pattern of perfusion at stress is within normal limits. GATED STUDY: There is intact wall motion and thickening without hypokinetic or dyskinetic segments. CONCLUSION: 1. No reversible perfusion defect to indicate stress-induced myocardial ischemia. RISK CATEGORY: Low (<1% Annual Mortality Rate) Zach Vásquez MD on August 09, 2017 at 14:18 Board Certified Radiologist. This report was verified electronically.
--- NOTE | 2017-08-09 14:55 | HHI.DS ---
Discharge Summary Admission Date Aug 08, 2017 at 15:04 Discharge Date: Aug 09, 2017 Admitting Diagnosis chest pain, cephalgia, Brief History 66 year old female with history of hypertension, hyperlipidemia, and personal coronary artery disease presents to emergency room for further evaluation of intermittent chest pain and a headache since Wednesday a.m. Admitted to chest pain center. After being ruled out with 3 sets of EKGs and cardiac enzymes completed chemical stress test which was unremarkable. Headache improved over course of stay, ct head unremarkable. CBC/BMP: 08/08/17 1220 08/08/17 1220 Significant Findings Laboratory Tests Test 08/08/17 12:20 08/08/17 15:40 08/08/17 18:24 Chloride Level 108 MEQ/L (98-107) Estimat Glomerular Filtration Rate 88 ML/MIN (>89) Troponin I LESS THAN 0.02 NG/ML LESS THAN 0.02 NG/ML LESS THAN 0.02 NG/ML Imaging Last Impressions Myocardial Perfusion Scan Nuc Med 08/09/17 0000 Signed Impressions: Service Date/Time: Wednesday, August 09, 2017 12:05 - CONCLUSION: 1. No reversible perfusion defect to indicate stress-induced myocardial ischemia. RISK CATEGORY: Low (<1%% Annual Mortality Rate) Zach Vásquez MD Head CT 08/08/17 1205 Signed Impressions: Service Date/Time: Tuesday, August 08, 2017 12:40 - CONCLUSION: No acute disease. Richard Le MD Chest X-Ray 08/08/17 1205 Signed Impressions: Service Date/Time: Tuesday, August 08, 2017 12:29 - CONCLUSION: No acute disease. Richard Le MD PE at Discharge GENERAL: Alert WN, WD, NAD, pleasant, female HEAD: NC, AT EYES: Sclera clear CV: RRR, without murmur, rub, gallop, no JVD, S1-S2 no S3-S4. RESP: Clear lungs throughout bilateral, no crackles, wheeze, rhonchi, symmetrical chest rise, nonlabored, able to speak in full sentences ABD: Soft, NT, ND MS: Normal tone 4 extremities, no obvious deformities, full range of motion NEURO: CN II through CN XII grossly intact, motor strength 5/5 PSYCH: A+O 3, pleasant affect, appropriate speech Pt Condition on Discharge: Good Discharge Disposition: Discharge Home Discharge Instructions DIET: Follow Instructions for: Heart Healthy Diet Activities you can perform: Regular-No Restrictions Juliana Chaparro Aug 09, 2017 14:55
== END 2017-08-09 16:52 | disposition home or self-care (01) ==
LOC: NEPE 11:32 → NEDA 15:04 → NEPFCDU 16:26
DX: R07.9 Chest pain, unspecified (principal); R51 Headache; I10 Essential (primary) hypertension; E86.0 Dehydration; I25.10 Atherosclerotic heart disease of native coronary artery without angina pectoris; J44.9 Chronic obstructive pulmonary disease, unspecified; E78.5 Hyperlipidemia, unspecified
CPT/HCPCS: 70450; 71010; 78452; 80048; 82550; 83735; 84484; 85025; 85610; 85730; 93005; 93017; 94664; 96361; 96372; 96374; 99285; A9502; G0378; J0780; J1200; J2785; J7030; J7040